=== PATIENT | male | born 1965 | race Caucasian/White ===

== ENCOUNTER 2021-09-24 03:33 | Emergency (ER) | payer BC ==
[~2021-09-24] VITALS: Ht 175.3 cm; Wt 68.0 kg
[2021-09-24] MEDS ORDERED: ZANTAC-360 (FAM20 MG PO (03:54)
[2021-09-24] MEDS ORDERED: EXCEDRIN MIGRA1 EAC1 PO (03:54)
[2021-09-24] MEDS ORDERED: ASPIRIN EC325 M1 PO (03:54)
[2021-09-24] MEDS ORDERED: AUGMENTIN 875-1 EACH PO (05:01)
[2021-09-24 05:11] VITALS: BP 129/81
== END 2021-09-24 05:13 | disposition home or self-care (01) ==
LOC: ER 03:33
DX: S81.812A Laceration without foreign body, left lower leg, initial encounter (principal); S81.811A Laceration without foreign body, right lower leg, initial encounter; F17.200 Nicotine dependence, unspecified, uncomplicated; F12.90 Cannabis use, unspecified, uncomplicated; Z79.82 Long term (current) use of aspirin; Z79.899 Other long term (current) drug therapy; Z88.7 Allergy status to serum and vaccine; W54.0XXA Bitten by dog, initial encounter; Y93.89 Activity, other specified; Y92.89 Other specified places as the place of occurrence of the external cause; Y99.8 Other external cause status